=== PATIENT | female | born 1950 | race Caucasian/White ===

== ENCOUNTER 2022-05-22 11:15 | Outpatient (RCR) | payer MEDICARE, SELFPAY | END 2022-09-24 23:59 | disposition home or self-care (01) | PROVIDERS: Visit Provider Physician Assistant Medical | DX: H81.12 Benign paroxysmal vertigo, left ear (principal); Z51.89 Encounter for other specified aftercare | CPT/HCPCS: 95992; 97535 ==

== ENCOUNTER 2023-07-11 19:42 | Outpatient (CLI) | payer MEDICARE, SELFPAY ==
--- OUTSIDE RECORDS SUMMARY | 2023-07-15 06:46 | XMS_ITS | Clinical Summary ---
Author Name Unknown Organization [facility] Address [place], [place] [address] Care Team Providers Care Corporate Operations Compliance Manager Name Role Phone Kely Cho Primary Care Provider Osman Marie MD Unavailable [phone] Nurses, Advanced Heart Failure Unavailable + Allergies Active Allergy Reactions Criticality Noted Date Comments Dexmedetomidine Arrhythmia 04/14/2021 Complete heart block Medications Medication Sig Dispensed Refills Start Date End Date Status dapagliflozin propanediol (Farxiga) 10 mg tabletIndications:A cute systolic heart failure (HC) Take 1 Tablet (10 mg) by mouth once daily. Get labs drawn in 2 weeks after starting Farxiga. 30 Tablet 11 3 Active carvediloL (COREG) 12.5 mg tabletIndications:P VC's (premature ventricular contractions),Nonis chemic cardiomyopathy (HC) Take 1 Tablet (12.5 mg) by mouth two times daily. 180 Tablet 3 3 Active sacubitril-valsarta n (ENTRESTO 24 MG-26 MG TABLET) 24-26 mg tabletIndications:A cute systolic heart failure (HC) Take 1 Tablet by mouth two times daily. 60 Tablet 11 3 Active Eliquis 5 mg tabletIndications:P ulmonary embolism, unspecified chronicity, unspecified pulmonary embolism type, unspecified whether acute cor pulmonale present (HC) TAKE 1 TABLET(5 MG) BY MOUTH TWICE DAILY 60 Tablet 6 4 Active spironolactone (ALDACTONE) 25 mg tabletIndications:A cute systolic heart failure (HC) TAKE 1/2 TABLET(12.5 MG) BY MOUTH EVERY MORNING 45 Tablet 4 Active rosuvastatin (CRESTOR) 20 mg tabletIndications:A cute systolic heart failure (HC) Take 1 Tablet (20 mg) by mouth at bedtime. 30 Tablet 4 Active amiodarone (CORDARONE) 200 mg tabletIndications:V entricular tachycardia (HC) Take 2 Tablets (400 mg) by mouth two times daily for 14 days, THEN decrease to 2 Tablets (400 mg) once daily. 90 Tablet 4 Active furosemide (LASIX) 40 mg tabletIndications:A cute systolic heart failure (HC) Take 0.5 Tablets (20 mg) by mouth once daily if needed (weight gain - 3 lbs in a day or 5 lbs in a week). 30 Tablet 2 2 07/12/19 24 Discontinued(*Pa tient states no longer taking) rosuvastatin (CRESTOR) 20 mg tabletIndications:A cute systolic heart failure (HC) TAKE 1 TABLET(20 MG) BY MOUTH AT BEDTIME 90 Tablet 4 07/04/19 24 Discontinued amoxicillin-clavula elaine 875-125 mg tablet (AUGMENTIN) Take 1 Tablet by mouth two times daily with meals. 4 07/14/19 24 Discontinued(*IP Discontinued) Active Problems Problem Noted Date Diagnosed Date Dilated cardiomyopathy 07/12/2023 Ventricular tachycardia 07/12/2023 History of pulmonary embolus (PE) 04/24/2021 Overview: [...] was given a second shock. Brought to [facility], then airlifted to [facility]. Angiogram showed mild coronary artery disease. Was put on cooling protocol. Echocardiogram showed heart failure and non ischemic cardiomyopathy. ICD placed 04/22/21. Acute systolic heart failure LBBB (left bundle branch block) Ventricular tachycardia PVC (premature ventricular contraction) Encounters Date Type Department Care Team Description 2023 Travel 07/12/2023 9:58 AM CDT - 2023 5:28 PM CDT Hospital Encounter [facility] [address] [place] [address] [facility], [facility] Hospitalists Of Dora Carter MD Ventricular tachycardia (HC) (Primary Dx) Discharge Disposition: Home Self Care 07/12/2023 Travel 07/11/2023 Orders Only [facility] [address] [place] [address] Tavo Mendoza MD <No scans attached> 07/11/2023 Telephone [facility] [address] [place] [address] Tavo Mendoza MD 07/04/2023 Refill [facility] [address] [place] [address] Kely Cho PA Refill Request (Rosuvastatin) 07/03/2023 Refill [facility] [address] [place] [address] Kely Cho PA Refill Request (Rosuvastatin) 05/27/2023 Refill [facility] [address] [place] [address] Kely Cho PA Refill Request (Spironolactone) 04/30/2023 Telephone Pending Sale To [facility] [address] [facility] [address] [place] [phone] Osman Marie MD Cardiology Appointment from Last 3 Months Immunizations Name Administration Dates Next Due COVID-19 vaccine (Simple AdmitBio NTBetterLesson 30mcg/0.3mL) CORINNE CALDERÓN 07/12/2020,06/21/2020 Influenza, High-dose Quadriv alent Inactivated 01/19/2022,01/07/2021,01/25/2020 [...] of Communication with Friends and Fami ly 0 07/12/2023 Financial Resource Strain Answer Date R ecorded Difficulty of Paying Living Expenses 3 07/12/2023 Difficulty of Paying Living Expenses Not on file 07/12/2023 Food Insecurity Answer Date Recorded Worried About Running Out of Food in the Last Ye ar 1 07/12/2023 Transportation Needs Answer Date Record ed Lack of Transportation (Medical) 1 07/12/2023 Housing Stability Answer Date Recorded Unable to Pay for Housing in the Last Year 1 07/12/2023 Sex and Gender Information Value Date Recorded Sex Assigned at Not on file Gender Identity Not on file Sexual Orientation Not on file Obstetrics History Last Filed Vital Signs Vital Sign Reading Time Taken Comments Blood Pressure 102/70 2023 4:11 PM CDT Pulse 84 2023 4:11 PM CDT Temperature 36.8 ??C (98.2 ??F) 2023 12:40 PM C DT Respiratory Rate 18 2023 4:11 PM CDT Oxygen Saturation 93% 2023 4:11 PM CDT Inhaled Oxygen Concentration - - Weight 93 kg (205 lb) 07/12/2023 10:10 AM CDT Height 172.7 cm (5' 8) 07/12/2023 10:10 AM CDT Body Mass Index 31.17 07/12/2023 10:10 AM CDT Plan of Treatment Upcoming Encounters Date Type Department Care Team (Late st Contact Info) Description 07/19/2023 1:00 PM CDT Office Visit [facility] [address] [place] [address] Magdalena Lima MD [address] [place] [address] 08/19/2023 9:30 AM CDT Orders Only [facility] [address] [place] [address] Lab, [place] 08/23/2023 11:10 AM CDT Office Visit [facility] [address] [place] [address] Kely Cho PA [address] [place] [address] 08/25/[address] [facility] [phone] 08/26/2023 10:00 AM CDT Office Visit [facility] [address] [place] [address] Osman Marie MD [address] [place] [address] 10/19/2023 10:30 AM CDT Cardiac Device Check [facility] [address] [place] [phone] Health Maintenance Due Date Last Done Comments [...] Procedure Name Priority Date/Time Associated Diagnosis Comments SCAN-CARDIAC STRIP 2023 4: 40 PM CDT MR CARDIAC WWO Routine 2023 12:31 PM CDT SCAN-CARDIAC STRIP 2023 7: 30 AM CDT MAGNESIUM Early AM 2023 6:10 AM CDT POTASSIUM Early AM 2023 6:10 AM CDT SCAN-CARDIAC STRIP 2023 2: 35 AM CDT SCAN-CARDIAC STRIP 07/13/2023 11 :32 AM CDT ECHO TTE LIMITED W CONTRAST W COLOR W DOPPLER Routine 07/13/2023 9:44 AM CDT SCAN CORRESP-EKG RESULTS 07/13/2023 9:00 AM CDT SCAN-CARDIAC STRIP 07/12/2023 8: 03 PM CDT SCAN-CARDIAC STRIP 07/12/2023 3: 52 PM CDT SCAN-CARDIAC STRIP 07/12/2023 12 :02 PM CDT XR CHEST 1 VIEW PORTABLE Routine 07/12/2023 11:31 AM CDT HEPATIC FUNCTION PANEL Today 07/12/2023 11:22 AM CDT TSH Today 07/12/2023 11:22 AM CDT MAGNESIUM Today 07/12/2023 11:22 AM CDT CBC W PLT NO DIFF Today 07/12/2023 11: 22 AM CDT BASIC METABOLIC PANEL Timed 07/12/2023 11:22 AM CDT XR MAMMO JERE BILAT SCREEN Routine 02/23/2022 4:31 PM PROPOSAL REVIEW ANALYST Visit for screening mammogram XR DXA BONE DENSITY 2 SITES AXIAL Routine 02/23/2022 3:41 PM PROPOSAL REVIEW ANALYST Menopause ANTI HCV Routine 02/03/2022 11:20 AM PROPOSAL REVIEW ANALYST Need for hepatitis C screening test LIPID PANEL Routine 08/15/2021 7:44 AM CDT Acute systolic heart failure (HC) from Last 3 Months or Most Recently Relevant to Health Maintenance Results * SCAN-CARDIAC STRIP (2023 4:40 PM CDT) Scanner OTHER * MR CARDIAC WWO (2023 12:31 PM CDT) Anatomical Region Laterality Modality HEART, THORAX Magnetic Resonan ce 2023 11:1 6 AM CDT Narrative 2023 1:07 PM CDT ?[facility] ? CMR Report ??MRN: ?[id number] ?Name: ? ANNE VILLARREAL ?: ?Scan Date: ?Accession Number: ?[id number] ?Status: ?Final ? Electronically signed by Perez Anguiano 13:07:48 VITALS ===== HEIGHT: 68 in ?(173 cm) WEIGHT: 205 lbs ?(93 kgs) BSA: 2.07 m^2 FINAL IMPRESSION ===== 1. On late gadolinium enhancement imaging, there is non-ischemic epicardial and subendocardial fibrosis involving the basal RVOT/anteroseptum and basal inferoseptum that correspond to the locations described in the procedural note from the 11/18/21 ablation sites (RVOT and LV septum). The myocardial fibrosis is less conspicuous compared to prior CMR scan from 03/03/2022. No cardiac thrombus. Parametric mapping was nondiagnostic due to off resonance artifacts related to her device. LV scar size is 4 % of LV mass. 2. Quantitative LVEF 57 %. LV systolic function is normal. LV cavity size is normal. LV wall thickness is normal. The left ventricular appears mildly hypertrabeculated. 3. Quantitative RVEF 59 %. RV systolic function is normal. RV cavity size is normal. 4. No significant valvular disease. ?? 5. No pericardial or pleural effusions. SUMMARY ===== LEFT VENTRICLE: Quantitative LVEF 57 % (previously 31% on 03/03/2022). LV systolic function is normal. LV cavity size is normal. LV wall thickness is normal. The left ventricular appears mildly hypertrabeculated. VIABILITY: On late gadolinium enhancement imaging, there is non-ischemic epicardial and subendocardial fibrosis involving the basal RVOT/anteroseptum and basal inferoseptum that correspond to the locations described in the procedural note from the 11/18/21 ablation sites (RVOT and LV septum). The myocardial fibrosis is less conspicuous compared to prior CMR scan from 03/03/2022. No cardiac thrombus. Parametric mapping was nondiagnostic due to off resonance artifacts related to her device. LV scar size is 4 % of LV mass. RIGHT VENTRICLE: Quantitative RVEF 59 % (previously 46% on 03/03/2022). RV systolic function is normal. RV cavity size is normal. PERICARDIUM: There is no pericardial effusion. PLEURAL EFFUSION: There is no pleural effusion. AORTIC VALVE: Aortic valve is trileaflet. There is no aortic stenosis. There is no aortic regurgitation. MITRAL VALVE: Mitral valve leaflets are normal. There is no mitral regurgitation. TRICUSPID VALVE: The tricuspid valve was obscured by artifact related to device leads PULMONIC VALVE: Pulmonic valve leaflets are normal. There is no pulmonic stenosis. There is no pulmonic regurgitation. AORTIC ROOT: The aortic root is normal. OTHER FINDINGS: Left sided ICD/MANAGER CUSTOMER SERVICE system in place with usual off resonance artifacts. CORE EXAM ===== MEASUREMENTS ----- --- ?VOLUMETRIC ANALYSIS ? . . ? LV ?? Reference RV ?? Reference +------+ +------+ +------+ + EDV ?? ml ?124 ??(77-158) ??115 ??(22-153) ? ml/m^2 ? 60 ??(50-84) ? 56 ??(45-82) ?? ESV ?? ml ? 53 ??(18-55) ? 47 ??(6-58) ? ml/m^2 ? 26 ??(12-30) ? 23 ??(6-32) ?? CO ?? L/min ? 4.83 ? 4.62 ? L/min/m^2 2.34 ? 2.24 ? MASS g ?119 ??(60-510) ? g/m^2 ? 58 ??(94-78) ? SV ?? ml ? 71 ??(54-109) ?? 68 ??(53-105) ? ml/m^2 ? 34 ??(34-59) ? 33 ??(33-57) ?? EF ?? % ? 57 ??(60-78) ? 59 ??(59-83) ?? '------+ +------+ +------+ ' ?CARDIAC OUTPUT HR: ??68 BPM 17 SEGMENT ----- --- . ----- ------. Segments ? Wall Motion ?? Hyperenhancement Stress Perfusion Interpretation + + + + +----- ----- ------+ Base Anterior ? Normal/Hyper None ? Base Anteroseptal ?? Normal/Hyper 26-50% ? Non-CAD Scar ?? Base Inferoseptal ?? Normal/Hyper 26-50% ? Non-CAD Scar ?? Base Inferior ? Normal/Hyper None ? Base Inferolateral Normal/Hyper None ? Base Anterolateral Normal/Hyper None ? Mid Anterior ? Normal/Hyper None ? Mid Anteroseptal ?? Normal/Hyper None ? Mid Inferoseptal ?? Normal/Hyper None ? Mid Inferior ? Normal/Hyper None ? Mid Inferolateral ?? Normal/Hyper None ? Mid Anterolateral ?? Normal/Hyper None ? Apical Anterior ? Normal/Hyper None ? Apical Septal ? Normal/Hyper None ? Apical Inferior ? Normal/Hyper None ? Apical Lateral ? Normal/Hyper None ? Milton ? Normal/Hyper None ? + + + + +----- ----- ------+ RV Segments ? Wall Motion ?? Hyperenhancement ? Interpretation + + + + +----- ----- ------+ RV Basal Anterior ? RV Basal Inferior ? RV Mid ? RV Apical ? ' + + + +----- ----- ------' ?FINDINGS ?LV SCAR SIZE (17 SEGMENT): ??4 % SCAN INFO ===== GENERAL ----- --- ?SCANNER ?COMPUTER DESIGNER: ??SIEMENS ?MODEL: ??Aera ?CONTRAST AGENT ?TYPE: ??Gadavist ?GD CONCENTRATION: ??1.0 M ?SETUP ?REFERRING PHYSICIAN: ??ER OTHER ?ATTENDING PHYSICIAN: ??DORA CARTER BILLING ===== Patient Account ?[id number] Report generated by [employer], a product of [employer] Procedure Note Perez Anguiano MD - 2023 [facility] CMR Report Name: YASMINE VILLARREALShy Bruno : Scan Date: Accession Number: [id number] Status: Final Electronically signed by Perez Anguiano 13:07:48 VITALS ===== HEIGHT: 68 in (173 cm) WEIGHT: 205 lbs (93 kgs) BSA: 2.07 m^2 FINAL IMPRESSION ===== 1. On late gadolinium enhancement imaging, there is non-ischemicepicardial and subendocardial fibrosis involving the basal RVOT/anteroseptum and basal inferoseptum thatcorrespond to the locations described in the procedural note from the 11/18/21 ablation sites (RVOT and LV septum).The myocardial fibrosis is less conspicuous compared to prior CMR scan from 03/03/2022. No cardiacthrombus. Parametric mapping was nondiagnostic due to off resonance artifacts related to her device. LVscar size is 4 % of LV mass. 2. Quantitative LVEF 57 %. LV systolic function is normal. LV cavity sizeis normal. LV wall thickness is normal. The left ventricular appears mildly hypertrabeculated. 3. Quantitative RVEF 59 %. RV systolic function is normal. RV cavity sizeis normal. 4. No significant valvular disease. 5. No pericardial or pleural effusions. SUMMARY ===== LEFT VENTRICLE: Quantitative LVEF 57 % (previously 31% on 03/03/2022). LVsystolic function is normal. LV cavity size is normal. LV wall thickness is normal. The left ventricular appears mildlyhypertrabeculated. VIABILITY: On late gadolinium enhancement imaging, there is non- ischemicepicardial and subendocardial fibrosis involving the basal RVOT/anteroseptum and basal inferoseptum thatcorrespond to the locations described in the procedural note from the 11/18/21 ablation sites (RVOT and LV septum).The myocardial fibrosis is less conspicuous compared to prior CMR scan from 03/03/2022. No cardiacthrombus. Parametric mapping was nondiagnostic due to off resonance artifacts related to her device. LVscar size is 4 % of LV mass. RIGHT VENTRICLE: Quantitative RVEF 59 % (previously 46% on 03/03/2022). RVsystolic function is normal. RV cavity size is normal. PERICARDIUM: There is no pericardial effusion. PLEURAL EFFUSION: There is no pleural effusion. AORTIC VALVE: Aortic valve is trileaflet. There is no aortic stenosis.There is no aortic regurgitation. MITRAL VALVE: Mitral valve leaflets are normal. There is no mitralregurgitation. TRICUSPID VALVE: The tricuspid valve was obscured by artifact related todevice leads PULMONIC VALVE: Pulmonic valve leaflets are normal. There is no pulmonicstenosis. There is no pulmonic regurgitation. AORTIC ROOT: The aortic root is normal. OTHER FINDINGS: Left sided ICD/MANAGER CUSTOMER SERVICE system in place with usual offresonance artifacts. CORE EXAM ===== MEASUREMENTS ----- --- VOLUMETRIC ANALYSIS . . LV Reference RV Reference +------+ +------+ +------+ + EDV ml 124 (77-158) 115 (69-153) ml/m^2 60 (50-84) 56 (45-82) ESV ml 53 (18-55) 47 (6-58) ml/m^2 26 (12-30) 23 (6-32) CO L/min 4.83 4.62 L/min/m^2 2.34 2.24 MASS g 119 (74-146) g/m^2 58 (49-78) SV ml 71 (54-109) 68 (53-105) ml/m^2 34 (34-59) 33 (33-57) EF % 57 (60-78) 59 (59-83) '------+ +------+ +------+ ' CARDIAC OUTPUT HR: 68 BPM 17 SEGMENT ----- --- . ----- ------. Segments Wall Motion Hyperenhancement Stress Perfusion Interpretation + + + + +----- ----- ------+ Base Anterior Normal/Hyper None Base Anteroseptal Normal/Hyper 26-50% Non-CAD Scar Base Inferoseptal Normal/Hyper 26-50% Non-CAD Scar Base Inferior Normal/Hyper None Base Inferolateral Normal/Hyper None Base Anterolateral Normal/Hyper None Mid Anterior Normal/Hyper None Mid Anteroseptal Normal/Hyper None Mid Inferoseptal Normal/Hyper None Mid Inferior Normal/Hyper None Mid Inferolateral Normal/Hyper None Mid Anterolateral Normal/Hyper None Apical Anterior Normal/Hyper None Apical Septal Normal/Hyper None Apical Inferior Normal/Hyper None Apical Lateral Normal/Hyper None Milton Normal/Hyper None + + + + +----- ----- ------+ RV Segments Wall Motion Hyperenhancement Interpretation + + + + +----- ----- ------+ RV Basal Anterior RV Basal Inferior RV Mid RV Apical ' + + + +----- ----- ------' FINDINGS LV SCAR SIZE (17 SEGMENT): 4 % SCAN INFO ===== GENERAL ----- --- SCANNER COMPUTER DESIGNER: SIEMENS MODEL: Aera CONTRAST AGENT TYPE: Gadavist GD CONCENTRATION: 1.0 M SETUP REFERRING PHYSICIAN: ERNÉ ROSA ATTENDING PHYSICIAN: DORA TORRES ===== Patient Account [id number] Report generated by [employer], a product of [employer] Saroj Rossi PA MR * SCAN-CARDIAC STRIP (2023 7:30 AM CDT) Scanner OTHER * POTASSIUM (2023 6:10 AM CDT) POTASSIUM 4.0 3.5 - 5.1 mmol/L 2023 7:30 AM CDT [facility] Blood BLOOD SPECIMEN / Unknown Butterfly / Unknown 2023 6:10 AM CDT 2023 6:46 AM CDT Dora Carter MD CHEMISTRY Performing Organization Address [facility] Co de Phone Number [facility] [address] [place] [address], * MAGNESIUM (2023 6:10 AM CDT) Only the most recent of2 resultswithin the time period is included. MAGNESIUM 2.1 1.6 - 2.4 mg/dL 2023 7:30 AM CDT [facility] Blood BLOOD SPECIMEN / Unknown Butterfly / Unknown 2023 6:10 AM CDT 2023 6:46 AM CDT Dora Carter MD CHEMISTRY Performing Organization Address [facility] Co de Phone Number [facility] [address] [place] [address], * SCAN-CARDIAC STRIP (2023 2:35 AM CDT) Scanner OTHER * SCAN-CARDIAC STRIP (07/13/2023 11:32 AM CDT) Scanner OTHER * ECHO TTE LIMITED W CONTRAST W COLOR W DOPPLER (07/13/2023 9:44 AM CDT) AORTIC VALVE MEAN PG 4 mmHg EJECTION FRACTION 54 % PEAK TR VELOCITY 2.1 m/s LVEDD 3.7 cm EJECTION FRACTION 55 - 60% Anatomical Region Laterality Modality Ultrasound 07/13/2023 8:03 AM CDT Narrative 07/13/2023 10:08 AM CDT ECHOCARDIOGRAM ANNE VILLARREAL ?Accession#: ?? [id number] : ?1950 72 years Study Date: ?? 07/13/2023 8:03:19 AM Gender: F ? BP: ? 114/64 mmHg Height: 173.00 cm ? BSA: ?2.07 m? ? ? Weight: 93.00 kg ?Tech: ? HR-TRVL ?Referring MD: SAROJ ROSSI Site: ? [facility] Reading Location: [facility] Patient Location: Inpatient. Procedure: Limited Echo w/ Contrast, Color Doppler and Limited Spectral Doppler. Indication for study: Tachycardia Cardiac Rhythm: Regular.Study quality: Technically limited. Final Impressions: Limited Echocardiogram performed 1. Technically limited exam 2. LVEF estimate 55-60%. Normal LV size and wall thickness. 3. No LV thrombus [contrast study]. 4. Normal RV size and global systolic function. Device lead in the right heart. 5. No significant valvular abnormalities. Trivial AI. 6. Normal PASP and RAP estimates. 7. Mildly dilated ascending aorta [3.8 cm]. Chamber Sizes and Function Left atrial size is normal. Right ventricular cavity size is normal, global systolic RV function is normal. Pacing wire/catheter visualized in the right ventricle. The right atrium is normal. The pulmonary artery is of normal size and origin. The sinus of Valsalva is dilated. The ascending aorta is dilated. Valves, RV Pressures and Diastolic Function The aortic valve is normal in structure, no stenosis and trivial regurgitation. The mitral valve is normal in structure, no mitral regurgitation. The tricuspid valve is normal in structure. Tricuspid regurgitation is not evident. The tricuspid regurgitant velocity is 2.1 m/s, the estimated right ventricular systolic pressure is 17 mmHg plus right atrial pressure. The pulmonic valve is normal. No pulmonic regurgitation is present on color flow. Masses, Effusion, Shunts There is no pericardial effusion. The inferior vena cava is normal sized, respiratory size variation greater than 50%. MEASUREMENTS AND CALCULATIONS 2-D Measurements and LV Function: LVID (d) 3.7 cm LV FS% (2D) ?? 27 % LVID (s) 2.7 cm LVOT diameter 2.2 cm IVS (d) ??0.9 cm HR ?70 bpm LVPW (d) 0.9 cm Ao Sinus 3.8 cm Asc Ao ?? 3.8 cm LA ? 3.3 cm Diastology: Mitral E Peak 0.45 m/s A Peak 0.70 m/s E/A ?0.6 DT ? 236 msec Aortic Valve: Vmax ? 1.3 m/s ??BRENT (V) ?? 2.73 cm? ? ? VTI ?0.27 m ?? BRENT (I) ?? 2.81 cm? ? ? LVOT V max 1.0 m/s ??Max PG ?7 mmHg LVOT VTI ?? 0.20 m ?? Mean PG ?? 4 mmHg SV ? 75 ml ?Dim Index 0.74 SV index ?? 36 ml/m? ? ? CO ?5.2 l/min ?CI ?2.5 l/min/m? ? ? Mitral Valve: MVA ?3.2 cm? ? ? MV P 1/2 68 msec Tricuspid Valve and estimated PA pressures: TR Vmax 2.1 m/s TAPSE 2.9 cm TR maxG 17 mmHg Pulmonic Valve: PV Vmax 1.0 m/s Contrast documentation: 2 ml diluted Definity, lot #[id number], [facility]# [id number] was administered peripherally to enhance visualization of all left ventricular segments. . This study was interpreted by an [facility] accredited facility. ??Final ?? Procedure Note Lucas Coburn MD - 07/13/2023 ECHOCARDIOGRAM ANNE VILLARREAL : 1950 72 years Study Date: 07/13/2023 8:03:19 AM Gender: F BP: 114/64 mmHg Height: 173.00 cm BSA: 2.07 m? ? ? Weight: 93.00 kg Tech: HR-TRVL Referring MD: SAROJ ROSSI Site: [facility] Reading Location: [facility] Patient Location: Inpatient. Procedure: Limited Echo w/ Contrast, Color Doppler and Limited SpectralDoppler. Indication for study: Tachycardia Cardiac Rhythm: Regular.Study quality: Technically limited. Final Impressions: Limited Echocardiogram performed 1. Technically limited exam 2. LVEF estimate 55-60%. Normal LV size and wall thickness. 3. No LV thrombus [contrast study]. 4. Normal RV size and global systolic function. Device lead in the rightheart. 5. No significant valvular abnormalities. Trivial AI. 6. Normal PASP and RAP estimates. 7. Mildly dilated ascending aorta [3.8 cm]. Chamber Sizes and Function Left atrial size is normal. Right ventricular cavity size is normal,global systolic RV function is normal. Pacing wire/catheter visualized inthe right ventricle. The right atrium is normal. The pulmonary artery isof normal size and origin. The sinus of Valsalva is dilated. The ascendingaorta is dilated. Valves, RV Pressures and Diastolic Function The aortic valve is normal in structure, no stenosis and trivialregurgitation. The mitral valve is normal in structure, no mitralregurgitation. The tricuspid valve is normal in structure. Tricuspidregurgitation is not evident. The tricuspid regurgitant velocity is 2.1m/s, the estimated right ventricular systolic pressure is 17 mmHg plusright atrial pressure. The pulmonic valve is normal. No pulmonicregurgitation is present on color flow. Masses, Effusion, Shunts There is no pericardial effusion. The inferior vena cava is normal sized,respiratory size variation greater than 50%. MEASUREMENTS AND CALCULATIONS 2-D Measurements and LV Function: LVID (d) 3.7 cm LV FS% (2D) 27 % LVID (s) 2.7 cm LVOT diameter 2.2 cm IVS (d) 0.9 cm HR 70 bpm LVPW (d) 0.9 cm Ao Sinus 3.8 cm Asc Ao 3.8 cm LA 3.3 cm Diastology: Mitral E Peak 0.45 m/s A Peak 0.70 m/s E/A 0.6 DT 236 msec Aortic Valve: Vmax 1.3 m/s BRENT (V) 2.73 cm? ? ? VTI 0.27 m BRENT (I) 2.81 cm? ? ? LVOT V max 1.0 m/s Max PG 7 mmHg LVOT VTI 0.20 m Mean PG 4 mmHg SV 75 ml Dim Index 0.74 SV index 36 ml/m? ? ? CO 5.2 l/min CI 2.5 l/min/m? ? ? Mitral Valve: MVA 3.2 cm? ? ? MV P 1/2 68 msec Tricuspid Valve and estimated PA pressures: TR Vmax 2.1 m/s TAPSE 2.9 cm TR maxG 17 mmHg Pulmonic Valve: PV Vmax 1.0 m/s Contrast documentation: 2 ml diluted Definity, lot #[id number], [facility]#[id number] was administered peripherally to enhance visualization of allleft ventricular segments. . This study was interpreted by an [facility] accredited facility. Final Saroj CASTAÑEDA ECHO ORD * SCAN CORRESP-EKG RESULTS (07/13/2023 9:00 AM CDT) Narrative 07/13/2023 9:00 AM CDT Ordered by an unspecified provider. Other Clinical Staff OTHER * SCAN-CARDIAC STRIP (07/12/2023 8:03 PM CDT) Scanner OTHER * SCAN-CARDIAC STRIP (07/12/2023 3:52 PM CDT) Scanner OTHER * SCAN-CARDIAC STRIP (07/12/2023 12:02 PM CDT) Scanner OTHER * XR CHEST 1 VIEW PORTABLE (07/12/2023 11:31 AM CDT) Anatomical Region Laterality Modality HEART, THORAX, CHEST Digital Rad iography Impressions 07/12/2023 6:45 PM CDT Cardiovascular structures: [Heart size and pulmonary vascularity stable allowing for portable technique.] ??ICD and pacemaker leads are in stable position of the left side generator. Lungs and pleura: [No new focal pulmonary opacities or pneumothorax.] No significant change. Narrative 07/12/2023 6:45 PM CDT INDICATION Heart failure TECHNIQUE Portable single view chest COMPARISON April 23, 2021 Dora Carter MD GENERAL IMAGING * TSH TODAY (07/12/2023 11:22 AM CDT) TSH 1.07 0.27 - 4.20 uIU/mL 07/12/2023 12:33 PM CDT [facility] Blood BLOOD SPECIMEN / Unknown Venipuncture / Unknown 07/12/2023 11:22 AM CDT 07/12/2023 11:45 AM CDT Narrative [facility] - 07/12/2023 12:33 PM CDT In Adults, TSH values between 5.00 and 10.00 uIU/ml do not necessarily indicate the presence of Hypothyroidism. Correlation with clinical findings such as presence of goiter and/or Thyroperoxidase (TPO) Antibody may be helpful. For more information please refer to CLIFF 2004; 291: 228-238. Dora Carter MD CHEMISTRY [facility] [address] [place] [address], [place] * CBC no diff TODAY (07/12/2023 11:22 AM CDT) WHITE BLOOD COUNT 5.5 4.5 - 11.0 thou/cu mm 07/12/2023 12:06 PM CDT [facility] RED BLOOD COUNT 4.67 4.00 - 5.20 mil/cu mm 07/12/2023 12:06 PM CDT [facility] HEMOGLOBIN 15.1 12.0 - 16.0 g/dL 07/12/2023 12:06 PM CDT [facility] HEMATOCRIT 44.9 33.0 - 51.0 % 07/12/2023 12:06 PM CDT [facility] MCV 96 80 - 100 fL 07/12/2023 12:06 PM CDT [facility] MCH 32.3 26.0 - 34.0 pg 07/12/2023 12:06 PM CDT [facility] MCHC 33.6 32.0 - 36.0 g/dL 07/12/2023 12:06 PM CDT [facility] RDW 12.9 11.5 - 15.5 % 07/12/2023 12:06 PM CDT [facility] PLATELET COUNT 179 140 - 440 thou/cu mm 07/12/2023 12:06 PM CDT [facility] MPV 10.7 6.5 - 11.0 fL 07/12/2023 12:06 PM CDT [facility] NRBC 0.0 % 07/12/2023 12:06 PM CDT [facility] ABS NRBC 0.0 thou /cu mm 07/12/2023 12:06 PM CDT [facility] Blood BLOOD SPECIMEN / Unknown Venipuncture / Unknown 07/12/2023 11:22 AM CDT 07/12/2023 11:45 AM CDT Dora Carter MD HEMATOLOGY [facility] [address] [address], * (ABNORMAL) Hepatic function panel TODAY (07/12/2023 11:22 AM CDT) ALBUMIN 4.3 4.0 - 4.9 g/dL 07/12/2023 12:33 PM CDT [facility] PROTEIN,TOTAL 6.9 6.0 - 8.0 g/dL 07/12/2023 12:33 PM CDT [facility] BILIRUBIN,TOTAL 0.4 0.0 - 1.2 mg/dL 07/12/2023 12:33 PM CDT [facility] BILIRUBIN,DIRECT <0.2 0.0 - 0.3 mg/dL 07/12/2023 12:33 PM CDT [facility] BILIRUBIN,INDIRE CT 07/12/2023 12:33 PM CDT [facility] Comment:Unable to calculate, Direct Bili <0.2 ALK PHOSPHATASE 64 35 - 104 IU/L 07/12/2023 12:33 PM CDT [facility] ALT (SGPT) 21 10 - 35 IU/L 07/12/2023 12:33 PM CDT [facility] AST (SGOT) 41(H) 10 - 35 IU/L 07/12/2023 12:33 PM CDT [facility] Blood BLOOD SPECIMEN / Unknown Venipuncture / Unknown 07/12/2023 11:22 AM CDT 07/12/2023 11:45 AM CDT Dora Carter MD CHEMISTRY [facility] [address] [address], * (ABNORMAL) Basic metabolic panel TODAY (07/12/2023 11:22 AM CDT) SODIUM 142 136 - 145 mmol/L 07/12/2023 12:33 PM CDT [facility] POTASSIUM 4.0 3.5 - 5.1 mmol/L 07/12/2023 12:33 PM CDT [facility] CHLORIDE 107 98 - 107 mmol/L 07/12/2023 12:33 PM T [facility] CO2,TOTAL 23 22 - 29 mmol/L 07/12/2023 12:33 PM T [facility] ANION GAP 12 5 - 18 07/12/2023 12:33 PM T [facility] GLUCOSE 111(H) 70 - 99 mg/dL 07/12/2023 12:33 PM T [facility] CALCIUM 9.3 8.8 - 10.2 mg/dL 07/12/2023 12:33 PM T [facility] BUN 9 8 - 23 mg/dL 07/12/2023 12:33 PM T [facility] CREATININE 0.81 0.50 - 0.90 mg/dL 07/12/2023 12:33 PM T [facility] BUN/CREAT RATIO 11 10 - 20 12:33 PM T [facility] eGFR 78(L) >90 mL/min/1.7 3m2 07/12/2023 12:33 PM T [facility] Comment:As of 2021, eG FR is calculated by the CKD-EPI creatinine equation without race adjustment. ??eGFR can be influenced by muscle mass, exercise, and diet. ??The reported eGFR is an estimation only and is only applicable if the renal function is stable. Blood BLOOD SPECIMEN / Unknown Venipuncture / Unknown 07/12/2023 11:22 AM CDT 07/12/2023 11:45 AM CDT Dora Carter MD [facility] [address] [place] [address], [place] * XR MAMMO JERE BILAT SCREEN (02/23/2022 4:31 PM PROPOSAL REVIEW ANALYST) Anatomical Region Laterality Modality BREASTS, Breast Left, Breast Right Bilateral Mammography Impressions 02/24/2022 3:24 PM PROPOSAL REVIEW ANALYST ??There is no radiographic evidence for malignancy. ??Recommend annual mammograms. MAMMOGRAM ASSESSMENT: ??ACR 1 Negative PATIENTS: You will also receive a letter with your examination results in an easy to read format. ??If you have questions about your results, please contact your referring provider. Narrative 02/24/2022 3:24 PM PROPOSAL REVIEW ANALYST For Patients: As a result of the Cures Act, medical imaging exams and procedure reports are released immediately into your electronic medical record. You may view this report before your referring provider. If you have questions, please contact your health care provider. XR MAMMO JERE BILAT SCREEN [[id number]] CLINICAL HISTORY: ??This is an asymptomatic 71 y.o. patient. INDICATION FOR EXAM: Mammogram Screening. TECHNIQUE: CC & MLO views were obtained. ??This study was evaluated with the assistance of Computer-Aided Detection. Breast Tomosynthesis was used in interpretation. COMPARISON FILM: Yes [facility] ?? FINDINGS: ??The breasts are heterogeneously dense, which may obscure small masses. There are no dominant masses, suspicious micro calcifications or areas of architectural distortion. Kely CASTAÑEDA MAMMO * XR DXA BONE DENSITY 2 SITES AXIAL [[id number]] (02/23/2022 3:41 PM PROPOSAL REVIEW ANALYST) Anatomical Region Laterality Modality Spine, HIPS, HIPL, HIPR Other Impressions 02/23/2022 4:45 PM PROPOSAL REVIEW ANALYST Normal bone density. RECOMMENDATIONS: The National Osteoporosis [...] recommended in 3-5 years. Kely Cho PA-C [facility] 02/23/2022 Narrative 02/23/2022 4:45 PM PROPOSAL REVIEW ANALYST For Patients: Results are automatically released to your [employer] account once available, in compliance with federal regulations. This means that you may see your results before your provider has had a chance to review them. Please allow 2-3 business days for your provider to comment on the results. XR DXA Bone Mineral Density (BMD) EXAM LOCATION: [facility] [address] [facility] [address] PATIENT NAME: Anne Villarreal DATE OF : [...] two scanners are made by the same sugar reprocess operator head. PROCEDURE: Dual-energy x-ray absorptiometry performed with routine [...] DEXA * ANTI HCV (02/03/2022 11:20 AM PROPOSAL REVIEW ANALYST) Pathologist [facility] [place] HEPATITIS C ANTIBODY Non-React malgorzata Non-React malgorzata 02/05/2022 1:09 PM PROPOSAL REVIEW ANALYST [facility] Comment:Antibodies to HCV no t detected; does not exclude the possibility of exposure to HCV. Blood BLOOD SPECIMEN / Unknown Venipuncture / Unknown 02/03/2022 11:20 AM PROPOSAL REVIEW ANALYST 02/03/2022 11:21 AM PROPOSAL REVIEW ANALYST Kely CASTAÑEDA SEND OUTS [facility] [address] [place] [address], * LIPID PANEL (08/15/2021 7:44 AM CDT) [facility] CHOLESTEROL,TOTAL 123 100 - 199 mg/dL 08/15/2021 3:29 PM CDT [facility] TRIGLYCERIDES 82 <150 mg/dL 08/15/2021 3:29 PM CDT [facility] HDL CHOLESTEROL 43 >40 mg/dL 3:29 PM CDT [facility] NON-HDL CHOLESTEROL 80 <145 mg/dl 08/15/2021 3:29 PM CDT [facility] CHOL/HDL RATIO 2.86 <4.50 08/15/2021 3:29 PM CDT [facility] LDL CHOLESTEROL 64 <=130 mg/dL 08/15/2021 3:29 PM CDT [facility] VLDL CHOLESTEROL 16 <=30 mg/dL 08/15/2021 3:29 PM CDT [facility] PROVIDER ORDERED STATUS RANDOM 08/15/2021 3:29 PM CDT [facility] Blood BLOOD SPECIMEN / Unknown Venipuncture / Unknown 08/15/2021 7:44 AM CDT 08/15/2021 7:44 AM CDT Celia Almanzar MD [facility] [address] [place] [address], from Last 3 Months or Most Recently Relevant to Health Maintenance Advance Directives * Full Code (Latest Code Status on File) Date Activated Date Inactivated Comments 07/12/2023 10:51 AM 2023 7:28 PM Question Answer Comments Code Status Discussion: Reviewed Preferences * Full Code Date Activated Date Inactivated Comments 11/18/2021 3:12 [...] Code Status Discussion: Reviewed Preferences Care Teams Corporate Operations Compliance Manager Relationship Specialty Start Date End Date Kely Cho PA [address] [place] [address] PCP - General Physician Plant Control Operator 04/24/21 Osman Marie MD [address] [place] [address] [phone] Cardiovascular Disease 09/10/21 Nurses, Advanced Heart Failure [address], [place] [phone] Advanced Heart Failure/Transplant Card 09/10/21
== END 2023-07-11 19:43 | disposition home or self-care (01) ==
LOC: AMB 07-15 06:44
PROVIDERS: PCP Physician Assistant Medical; Visit Provider Family Medicine
DX: I49.9 Cardiac arrhythmia, unspecified (principal); T82.190A Other mechanical complication of cardiac electrode, initial encounter; Z95.810 Presence of automatic (implantable) cardiac defibrillator
CPT/HCPCS: A0425; A0427

== ENCOUNTER 2023-07-11 20:28 | Emergency (ER) | payer MEDICARE, SELFPAY ==
[2023-07-11] VITALS (25 sets, daily range): BP systolic 101–120; BP diastolic 68–82; PULSE 88–109; RESP 16; TEMP 36.8; O2SAT 90–96; BMI 31.9
--- NOTE | 2023-07-11 20:45 | ED_ITS ---
HPI - General Adult General Chief complaint: Chest Pain Stated complaint: Chest pain Time Seen by Provider: 07/11/23 20:37 History of Present Illness HPI narrative: Patient here after her defibrillator fired 5+ times at home. The last one was in the ambulance garage in which it was noted she was in vfib and thus has been shocking appropriately. Device Rep at [facility] talked with EMS and would like interogation results faxed to them. Patient had it placed in 2021 and diagnosed with heart failure and having runs of vfib. Recently treated at Urgent Care for a URI (on Augmentin) and mucinex. Device rep number is [phone]. 72-year-old woman presenting to the emergency department via EMS with concern of ventricular fibrillation. Reviewing rhythm strips looks to be more like a ventricular tachycardia. Shortly prior to arrival her defibrillator apparently fired 5 times. Last firing was in the hospital ambulance bay. Underlying history of what sounds to have been a VFib arrest prompting placement of pacer defibrillator. Also apparently had cardiac ablation. Diagnosis of heart failure as well. Maintained on Eliquis. Seen in urgent care earlier today after 5 days of cough and initiated on Augmentin for suspected pneumonia -- over-read of imaging noted to be without suspected infiltrate. Currently arrives without chest pain. Not particularly short of breath. She has not had a fever. I am talking with her though begins to feel a little woozy and I see a run of V tach on the monitor. This happens a couple of times within a minute. Self limited lasting about 6 seconds and looks to be at about 150 beats per minute. Her pacer does not apparently fire. Related Data Home Medications Medication Instructions Recorded Confirmed apixaban 5 mg tablet (Eliquis) 5 mg PO BID 07/11/23 07/11/23 carvedilol 12.5 mg tablet 12.5 mg PO BID 07/11/23 07/11/23 dapagliflozin propanediol 10 mg 10 mg PO DAILY 07/11/23 07/11/23 tablet (Farxiga) rosuvastatin 20 mg tablet 20 mg PO QPM 07/11/23 07/11/23 sacubitril 24 mg-valsartan 26 mg 1 tab PO BID 07/11/23 07/11/23 tablet (Entresto) spironolactone 25 mg tablet 25 mg PO BID 07/11/23 07/11/23 Previous Rx's Medication Instructions Recorded amoxicillin 875 mg-potassium 1 tab PO BID #20 tabs 07/11/23 clavulanate 125 mg tablet Allergies Allergy/AdvReac Type Severity Reaction Status Date / Time dexmedetomidine Allergy Intermediate Verified 07/11/23 10:32 [From Precedex] Review of Systems Status of ROS: Reports: 6 or more systems reviewed and unremarkable except as noted in History and below [facility] Medical History History of cardiac arrest ?Z86.74 - Personal history of sudden cardiac arrest (ICD-10) Surgical History History of radiofrequency ablation (RFA) procedure for cardiac arrhythmia ?Z98.890 - Other specified postprocedural states (ICD-10) Status post cardiac pacemaker procedure ?Z95.0 - Presence of cardiac pacemaker (ICD-10) Social History Non-prescribed substance use: denies use Exam Narrative: Exam Narrative: Pleasant. Easily conversant. Partially edentulous. Cranial nerves 2-12 intact. Breathing easily. Lungs appear to be clear. She does sound congested in the nasopharynx. Skin is warm and dry. She does not have significant peripheral edema maybe some trace dependent edema in the lower legs. Heart is in an elevated rate but regular rhythm on auscultation. Rather distant though. Abdomen is soft. Const: Vital Signs, click to edit/add: Vital Signs - 24 hr 07/11/23 20:35 07/11/23 20:36 07/11/23 20:38 Temperature 98.2 F Pulse Rate 102 H 109 H Pulse Rate [Pulse Oximeter] 107 H Respiratory Rate 16 Blood Pressure 118/82 Blood Pressure [Ri ght Upper Arm] 118/82 Pulse Oximetry 90 90 90 Oxygen Delivery Me thod Room Air 07/11/23 20:45 07/11/23 21:00 07/11/23 21:15 Temperature Pulse Rate 109 H 106 H 106 H Pulse Rate [Pulse Oximeter] Respiratory Rate Blood Pressure Blood Pressure [Ri ght Upper Arm] Pulse Oximetry 92 91 92 Oxygen Delivery Me thod 07/11/23 21:30 07/11/23 21:45 07/11/23 21:56 Temperature Pulse Rate 107 H 98 104 H Pulse Rate [Pulse Oximeter] Respiratory Rate Blood Pressure 120/75 Blood Pressure [Ri ght Upper Arm] Pulse Oximetry 92 94 96 Oxygen Delivery Me thod 07/11/23 21:57 07/11/23 21:59 07/11/23 22:00 Temperature Pulse Rate 102 H 100 100 Pulse Rate [Pulse Oximeter] Respiratory Rate Blood Pressure 116/79 104/75 Blood Pressure [Ri ght Upper Arm] Pulse Oximetry 95 95 95 Oxygen Delivery Me thod 07/11/23 22:01 07/11/23 22:04 07/11/23 22:05 Temperature Pulse Rate 99 98 97 Pulse Rate [Pulse Oximeter] Respiratory Rate Blood Pressure 102/68 Blood Pressure [Ri ght Upper Arm] Pulse Oximetry 95 95 94 Oxygen Delivery Me thod 07/11/23 22:09 07/11/23 22:15 07/11/23 22:25 Temperature Pulse Rate 94 91 Pulse Rate [Pulse Oximeter] Respiratory Rate Blood Pressure 101/68 107/78 Blood Pressure [Ri ght Upper Arm] Pulse Oximetry 95 95 Oxygen Delivery Me thod 07/11/23 22:26 07/11/23 22:30 07/11/23 22:45 Temperature Pulse Rate 88 90 93 Pulse Rate [Pulse Oximeter] Respiratory Rate Blood Pressure Blood Pressure [Ri ght Upper Arm] Pulse Oximetry 95 96 94 Oxygen Delivery Me thod 07/11/23 23:00 07/11/23 23:15 07/11/23 23:30 Temperature Pulse Rate 92 88 93 Pulse Rate [Pulse Oximeter] Respiratory Rate Blood Pressure Blood Pressure [Ri ght Upper Arm] Pulse Oximetry 96 95 95 Oxygen Delivery Me thod 07/11/23 23:46 07/12/23 01:01 07/12/23 02:30 Temperature Pulse Rate 89 95 81 Pulse Rate [Pulse Oximeter] Respiratory Rate 20 20 Blood Pressure 115/81 125/78 Blood Pressure [Ri ght Upper Arm] Pulse Oximetry 95 93 94 Oxygen Delivery Me thod 07/12/23 02:45 07/12/23 02:48 07/12/23 03:00 Temperature Pulse Rate 83 86 Pulse Rate [Pulse Oximeter] Respiratory Rate 20 Blood Pressure 130/81 Blood Pressure [Ri ght Upper Arm] Pulse Oximetry 95 98 94 Oxygen Delivery Me thod 07/12/23 04:11 07/12/23 05:03 07/12/23 06:16 Temperature 98.2 F 98.2 F 98.2 F Pulse Rate Pulse Rate [Pulse Oximeter] 85 75 70 Respiratory Rate 20 20 20 Blood Pressure Blood Pressure [Ri ght Upper Arm] 130/87 124/71 117/67 Pulse Oximetry 98 98 98 Oxygen Delivery Me thod Room Air Room Air Room Air 07/12/23 07:00 Temperature Pulse Rate Pulse Rate [Pulse Oximeter] 89 Respiratory Rate 18 Blood Pressure Blood Pressure [Ri ght Upper Arm] 130/78 Pulse Oximetry 93 Oxygen Delivery Me thod Room Air Documenting provider has reviewed patient's vital signs: yes Course Vital Signs Vital signs: Initial Vital Signs Pulse Rate 102 H 07/11/23 20:35 Blood Pressure 118/82 07/11/23 20:35 Blood Pressure Mean 94 07/11/23 20:35 Pulse Oximetry 90 07/11/23 20:35 Vital Signs Pulse Rate 102 H 07/11/23 20:35 Blood Pressure 118/82 07/11/23 20:35 Pulse Oximetry 90 07/11/23 20:35 Temperature 98.2 F 07/12/23 06:16 Pulse Rate 89 07/12/23 07:00 Respiratory Rate 18 07/12/23 07:00 Blood Pressure 130/78 07/12/23 07:00 Pulse Oximetry 93 07/12/23 07:00 Oxygen Delivery Method Room Air 07/12/23 07:00 Medications Administered Medications: Generic Name Dose Route Start Last Admin Trade Name Freq PRN Reason Stop Dose Admin Amiodarone HCl/Dextrose 360 mg in 200 mls @ 16.5 mls/hr 07/12/23 04:15 07/12/23 03:51 Nexterone 360 Mg/200 Ml Bag IV 16.5 mls/hr .BAG 2 FRANCIS Administration Discontinued Medications Generic Name Dose Route Start Last Admin Trade Name Freq PRN Reason Stop Dose Admin Amiodarone HCl 150 mg 07/11/23 21:03 07/11/23 21:58 Amiodarone 50 Mg/Ml Inj IVP 07/11/23 21:04 150 mg ONCE ONE Administration Sodium Chloride 500 mls @ 500 mls/hr 07/11/23 21:05 07/12/23 01:02 0.9 % Sodium Chloride 500 Ml IV 07/11/23 22:04 Infused .Q1H ONE Infusion Amiodarone HCl/Dextrose 360 mg in 200 mls @ 33 mls/hr 07/11/23 22:30 07/12/23 03:50 Nexterone 360 Mg/200 Ml Bag IV Infused .BAG ONE FRANCIS Infusion Amiodarone HCl/Dextrose 360 mg in 200 mls @ 33 mls/hr 07/11/23 23:15 07/12/23 03:51 Nexterone 360 Mg/200 Ml Bag IV 07/12/23 05:18 Not Given ONCE ONE Medical Decision Making MDM Narrative Medical decision making narrative: Reviewing strips provided by EMS, not clear that these represents VFib . I do see ventricular tachycardia however. IVs initiated and further pacer pads placed. Hopefully not necessary in light of what appears to be a currently functioning implanted defibrillator. Will need to check electrolytes. Light IV hydration. Discussed with cardiology on-call. Reviewed rhythm strips an EKG. Accepted for transport to [facility] with bed availability presumably yet this evening. Will attempt to query device with home transmitter -- ultimately only able to leave messages for staff. Will be initiating amiodarone bolus and then drip per protocol. With treatment as above, frequency of these V-tach episodes had spaced out and now resolved. Anne otherwise feels well. Stable vitals. Mild troponin elevation I think would be expected from a pacer in discharge. Labs are otherwise reassuring. Due to staffing difficulty, bed availability at [facility] now is not guaranteed until morning. Offered transfer to the emergency department. Did discuss with ED staff who is encouraging, due to their volume currently, to continue current therapies here. Anne has been stable. Has had cough and a feeling more throat irritation again. Given honey per request. Has continued without further event. Anticipating transfer after [facility] change of shift and will need to handoff at change of shift here. Medical Records Medical records reviewed: Yes I reviewed the patient's medical records Lab Data Labs: Lab Results 07/11/23 07/11/23 Range/Units 21:03 21:20 WBC 7.34 (4.50-11.00) K/uL RBC 4.79 (4.00-5.20) m/uL Hgb 15.5 (12.0-16.0) gm/dL Hct 45.7 (33.0-51.0) % MCV 95 (80-100) fL MCH 32 (26-34) pg MCHC 34 (32-36) gm/dL RDW Coeff of Kady 12.4 (11.5-15.5) % Plt Count 177 (140-440) K/uL Neut % (Auto) 76.2 H (42.0-72.0) % Lymph % (Auto) 12.9 L (20-44) % [place] % (Auto) 10.4 (0.0-11.0) % Eos % (Auto) 0.0 (0.0-7.0) % Baso % (Auto) 0.4 (0.0-3.0) % Neut # (Auto) 5.60 (1.7-7.0) K/uL Lymph # (Auto) 0.90 (0.90-2.90) K/uL [place] # (Auto) 0.80 (0.00-0.90) K/UL Eos # (Auto) 0.00 (0.00-0.50) K/uL Baso # (Auto) 0.03 (0.00-0.30) K/uL Abs Immat Gran (auto) 0.01 (0.00-0.30) K/uL Imm/Tot Granulo (auto) 0.1 % Sodium 138 (135-149) mmol/L Potassium 3.9 (3.6-5.1) mmol/L Chloride 110 (96-114) mmol/L Carbon Dioxide 21 (20-32) mmol/L Anion Gap 7 (7-15) mEq/L BUN 15 (7-30) mg/dL Creatinine 0.7 (0.5-1.5) mg/dL Estimated Creat Clear 52.81 Estimated GFR 93 ml/min Glucose 182 H (60-115) mg/dL Calcium 8.8 (8.4-10.6) mg/dL Magnesium 2.2 (1.5-2.6) mg/dL Troponin I 0.05 H (0.01-0.04) ng/mL POC Troponin I 0.06 H (0.01-0.04) ng/ml ECG Data Attestation: I personally reviewed and interpreted this ECG as follows: (Paced ventricular rhythm) Discharge Plan Discharge Clinical Impression: Ventricular tachycardia, Defibrillator discharge Patient Disposition: Wendyekaterina Edita Eduardo Condition: Improved Prescriptions: No Action spironolactone 25 mg tablet 25 mg PO BID rosuvastatin 20 mg tablet 20 mg PO QPM Entresto 24-26 mg tablet 1 tab PO BID Eliquis 5 mg tablet 5 mg PO BID dapagliflozin propanediol [Farxiga] 10 mg tablet 10 mg PO DAILY carvedilol 12.5 mg tablet 12.5 mg PO BID amoxicillin-pot clavulanate 875-125 mg tablet 1 tab PO BID Qty: 20 0RF Stand Alone Forms: MyHealth Info Instructions
--- OUTSIDE RECORDS SUMMARY | 2023-07-11 21:27 | XMS_ITS | Clinical Summary ---
Author Name Unknown Organization [employer] [facility] Address [place], [place] [address] Care Team Providers Care Application Support Analyst Name Role Phone Kely Cho Primary Care Provider Osman Marie MD Unavailable [phone] Nurses, Advanced Heart Failure Unavailable + Allergies Active Allergy Reactions Criticality Noted Date Comments Dexmedetomidine Arrhythmia 04/14/2021 Complete heart block Medications Medication Sig Dispensed Refills Start Date End Date Status furosemide (LASIX) 40 mg tabletIndications:A cute systolic heart failure (HC) Take 0.5 Tablets (20 mg) by mouth once daily if needed (weight gain - 3 lbs in a day or 5 lbs in a week). 30 Tablet 2 10/07/2021 Active dapagliflozin propanediol (Farxiga) 10 mg tabletIndications:A cute systolic heart failure (HC) Take 1 Tablet (10 mg) by mouth once daily. Get labs drawn in 2 weeks after starting Farxiga. 30 Tablet 11 10/29/2022 Active carvediloL (COREG) 12.5 mg tabletIndications:P VC's (premature ventricular contractions),Nonis chemic cardiomyopathy (HC) Take 1 Tablet (12.5 mg) by mouth two times daily. 180 Tablet 3 11/06/2022 Active sacubitril-valsarta n (ENTRESTO 24 MG-26 MG TABLET) 24-26 mg tabletIndications:A cute systolic heart failure (HC) Take 1 Tablet by mouth two times daily. 60 Tablet 11 11/11/2022 Active Eliquis 5 mg tabletIndications:P ulmonary embolism, unspecified chronicity, unspecified pulmonary embolism type, unspecified whether acute cor pulmonale present (HC) TAKE 1 TABLET(5 MG) BY MOUTH TWICE DAILY 60 Tablet 6 04/05/2023 Active spironolactone (ALDACTONE) 25 mg tabletIndications:A cute systolic heart failure (HC) TAKE 1/2 TABLET(12.5 MG) BY MOUTH EVERY MORNING 45 Tablet 05/28/2023 Active rosuvastatin (CRESTOR) 20 mg tabletIndications:A cute systolic heart failure (HC) Take 1 Tablet (20 mg) by mouth at bedtime. 30 Tablet 07/04/2023 Active rosuvastatin (CRESTOR) 20 mg tabletIndications:A cute systolic heart failure (HC) TAKE 1 TABLET(20 MG) BY MOUTH AT BEDTIME 90 Tablet 04/04/2023 4 Discontinued Active Problems Problem Noted Date Diagnosed Date History of pulmonary embolus (PE) 04/24/2021 Overview: 04/16/21 Distal main right pulmonary artery extending into the upper and middle lobe branches. Found on cardiac MRI following cardiac arrest. Cardiac arrest 04/09/2021 Overview: Out of hospital cardiac arrest 04/09/21. When EMS arrived, patient was in Vtach. Shocked once, epi given x2, with ROSC. Then had recurrent Vtach and was given a second shock. Brought to [facility], then airlifted to [facility]. Angiogram showed mild coronary artery disease. Was put on cooling protocol. Echocardiogram showed heart failure and non ischemic cardiomyopathy. ICD placed 04/22/21. Acute systolic heart failure LBBB (left bundle branch block) Ventricular tachycardia PVC (premature ventricular contraction) Encounters Date Type Department Care Team Description 07/11/2023 11:59 PM CDT Hospital Encounter [facility] [address] [place] [address] [facility] 07/11/2023 Orders Only [facility] [address] [place] [address] Tavo Mendoza MD <No scans attached> 07/11/2023 Telephone [facility] [address] [place] [address] Tavo Mendoza MD 07/04/2023 Refill [facility] [address] [place] [address] Kely Cho PA Refill Request (Rosuvastatin) 07/03/2023 Refill [facility] [address] [place] [address] Kely Cho PA Refill Request (Rosuvastatin) 05/27/2023 Refill [facility] [address] [place] [address] Kely Cho PA Refill Request (Spironolactone) 04/30/2023 Telephone [facility] [address] [facility] [address] [place] [address] Osman Marie MD Cardiology Appointment from Last 3 Months Immunizations Name Administration Dates Next Due COVID-19 vaccine (b[id number] 30mcg/0.3mL) PF, MDV 07/12/2020,06/21/2020 Influenza, High-dose Quadriv alent Inactivated 01/19/2022,01/07/2021,01/25/2020 Influenza, IIV3 (Age >=3 years) 12/09/2009 Influenza, IIV4 12/03/2015,12/11/2013,12/12/2012 Influenza, IIV4 (=>6mos) MDV 12/19/2014 Influenza, Inactivated IIV3 (Age 65+ Years) Preserv Free 02/08/2019,02/03/2018 Influenza,CCIIV4 PRESERV FREE 01/06/2017 Pneumococcal Conj 20-valent (Prevnar 20) 022 Zoster (Zostavax-ZVL, live) 02/04/2016 Family History Medical History Relation Name Comments Heart attack Father Stroke Maternal Grandmother Arthritis Mother Knee surgeries Cancer-colon Paternal Grandfather Cancer-breast No Family History Cancer-ovarian No Family History Relation Name Status Comments Father MVA Maternal Grandmother Mother Alive Paternal Grandfather Social History Tobacco Use Types Packs/Day Years Used Date Smoking Tobacco: Never Smokeless Tobacco: Never Tobacco Cessation:Counseling Given: Yes Alcohol Use Standard Drinks/Week Comments Yes 2 (1 standard drink = 0.6 oz pure alcohol) wine and kary 2-3 times a week PHQ-2 Answer Date Recorded PHQ-2 TOTAL SCORE 0 02/03/2022 Social Connections Answer Date Recorded Frequency of Communication with Friends and Fami ly Not on file 12/06/2022 Financial Resource Strain Answer Date R ecorded Difficulty of Paying Living Expenses 3 11/26/2021 Difficulty of Paying Living Expenses Not on file 11/26/2021 Food Insecurity Answer Date Recorded Worried About Running Out of Food in the Last Ye ar 1 11/26/2021 Transportation Needs Answer Date Record ed Lack of Transportation (Medical) 1 11/26/2021 Housing Stability Answer Date Recorded Unable to Pay for Housing in the Last Year 1 11/26/2021 Sex and Gender Information Value Date Recorded Sex Assigned at Not on file Gender Identity Not on file Sexual Orientation Not on file Obstetrics History Last Filed Vital Signs Vital Sign Reading Time Taken Comments Blood Pressure 94/68 04/01/2023 8:42 AM RADIO ENGINEERING TEACHER Pulse 84 04/01/2023 8:42 AM RADIO ENGINEERING TEACHER Temperature 37.1 ??C (98.8 ??F) 11/19/2021 8:00 AM CD T Respiratory Rate 16 11/19/2021 8:00 AM CDT Oxygen Saturation 96% 04/01/2023 8:42 AM RADIO ENGINEERING TEACHER Inhaled Oxygen Concentration - - Weight 92.1 kg (203 lb) 04/01/2023 8:42 AM RADIO ENGINEERING TEACHER Height 172.7 cm (5' 8) 04/01/2023 8:42 AM RADIO ENGINEERING TEACHER Body Mass Index 30.87 04/01/2023 8:42 AM RADIO ENGINEERING TEACHER Plan of Treatment Upcoming Encounters Date Type Department Care Team (Late st Contact Info) Description 08/19/2023 9:30 AM CDT Orders Only [facility] [address] [place] [address] Zeferino, Michael 08/23/2023 11:10 AM CDT Office Visit [facility] [address] [facility] [place] [address] Kely Cho PA [address] [facility] [address] 08/26/2023 10:00 AM CDT Office Visit [facility] [address] [place] [address] Osman Marie MD [address] [place] [address] 10/19/2023 10:30 AM CDT Cardiac Device Check [facility] [address] [place] [address] Health Maintenance Due Date Last Done Comments Tdap 07/15/1963 Tetanus booster 1972 Colonoscopy through age 75 1997 Zoster (shingles) series for age 50+ (2 of 3) 03/31/2016 02/04/2016 COVID-19 vaccine series ( season) 2022 03/20/2021, 07/12/2020, 06/21/2020 Depression screening for age 12+ 02/03/2023 02/03/2022, 02/03/2022, 08/15/2021, Additional history exists Medicare Wellness for age 65+ 02/04/2023 02/03/2022 Mammogram for age 45-75 02/23/2023 02/23/2022, 02/03 Influenza for age 65+ 11/07/2023 01/19/2022 , 01/07/2021, 01/25/2020, Additional history exists BMI (ht and wt on same day) for age 18+ 04/01/2024 04/01/2023, 06/10/2022, 03/12/2022, Additional history exists Lipids for age 45-75 08/15/2026 08/15/2021, 12/03/2015, 08/10/2012 Hepatitis C screening for ag e 18-79 Completed 02/03/2022 Pneumococcal series for age 65+ Completed DEXA/DXA scan for age 65+ Completed 02/23/2022, Procedures Procedure Name Priority Date/Time Associated Diagnosis Comments XR MAMMO JERE BILAT SCREEN Routine 02/23/2022 4:31 PM RADIO ENGINEERING TEACHER Visit for screening mammogram XR DXA BONE DENSITY 2 SITES AXIAL Routine 02/23/2022 3:41 PM RADIO ENGINEERING TEACHER Menopause ANTI HCV Routine 02/03/2022 11:20 AM RADIO ENGINEERING TEACHER Need for hepatitis C screening test LIPID PANEL Routine 08/15/2021 7:44 AM CDT Acute systolic heart failure (HC) from Last 3 Months or Most Recently Relevant to Health Maintenance Results * XR MAMMO JERE BILAT SCREEN (02/23/2022 4:31 PM RADIO ENGINEERING TEACHER) Anatomical Region Laterality Modality BREASTS, Breast Left, Breast Right Bilateral Mammography Impressions 02/24/2022 3:24 PM RADIO ENGINEERING TEACHER ??There is no radiographic evidence for malignancy. ??Recommend annual mammograms. MAMMOGRAM ASSESSMENT: ??ACR 1 Negative PATIENTS: You will also receive a letter with your examination results in an easy to read format. ??If you have questions about your results, please contact your referring provider. Narrative 02/24/2022 3:24 PM RADIO ENGINEERING TEACHER For Patients: As a result of the Century Cures Act, medical imaging exams and procedure reports are released immediately into your electronic medical record. You may view this report before your referring provider. If you have questions, please contact your health care provider. XR MAMMO JERE BILAT SCREEN [[id number]] CLINICAL HISTORY: ??This is an asymptomatic 71 y.o. patient. INDICATION FOR EXAM: Mammogram Screening. TECHNIQUE: CC & MLO views were obtained. ??This study was evaluated with the assistance of Computer-Aided Detection. Breast Tomosynthesis was used in interpretation. COMPARISON FILM: Yes 02/04/16 [employer] ?? FINDINGS: ??The breasts are heterogeneously dense, which may obscure small masses. There are no dominant masses, suspicious micro calcifications or areas of architectural distortion. Kely CASTAÑEDA MAMMO * XR DXA BONE DENSITY 2 SITES AXIAL [[id number]] (02/23/2022 3:41 PM RADIO ENGINEERING TEACHER) Anatomical Region Laterality Modality Spine, HIPS, HIPL, HIPR Other Impressions 02/23/2022 4:45 PM RADIO ENGINEERING TEACHER Normal bone density. RECOMMENDATIONS: The National Osteoporosis Foundation recommends pharmacologic treatment for patients with T-scores of -2.5 or less, patients with prior history of fragility fractures, or patients with 10-year probability of greater than 3% at hips or greater than 20% of suffering major osteoporotic fractures. Recommend continued optimization of calcium and vitamin D intake through dietary means and/or supplementation and regular exercise. Repeat scan recommended in 3-5 years. Kely Cho PA-C [facility] 02/23/2022 Narrative 02/23/2022 4:45 PM RADIO ENGINEERING TEACHER For Patients: Results are automatically released to your [facility] ([facility]) account once available, in compliance with federal regulations. This means that you may see your results before your provider has had a chance to review them. Please allow 2-3 business days for your provider to comment on the results. XR DXA Bone Mineral Density (BMD) EXAM LOCATION: [address] [address] PATIENT NAME: Anne Villarreal DATE OF : 1950 EXAM DATE: 02/23/2022 REQUESTING PROVIDER: Kely Cho PA GENDER AT : female HEIGHT: 5' 7 (02/03/2022) WEIGHT: ??202 lb (02/03/2022) MENOPAUSAL STATUS: Postmenopausal RACE/ETHNICITY: White RISK FACTORS: White Race CURRENT MEDICATION FOR BONE LOSS: NONE INDICATION: Post-Menopause COMPARISON DATE(S): 2015 DXA scans are compared to prior studies for a patient only when the two (or more) studies were performed on the same scanner. It is not possible to compare data generated on one scanner to data from another because there are not standards in DXA equipment. This applies even if the two scanners are made by the same armhole baster hand. PROCEDURE: Dual-energy x-ray absorptiometry performed with routine technique. Reporting is completed in the form of a T-score. The T-score represents the standard deviation from peak bone mass based on young healthy adult. A Z-score is used for diagnosis in premenopausal women, and for men under the age of 50. FINDINGS: RESULT LUMBAR SPINE L1 - L4 BMD: 1.131 g/cm2 T-Score: - 0.5 Z-Score: + 0.3 Change from prior in 2016: ??Decrease 5.8%. RESULTS FEMUR Left femoral neck BMD: 0.933 g/cm2 T-Score: - 0.8 Z-Score: + 0.3 Change from prior in 2016: ??Decrease 8.5%. Right femoral neck BMD: 0.928 g/cm2 T-Score: - 0.8 Z-Score: + 0.3 Change from prior in 2016: ??Decrease 4.5%. Left hip BMD: 0.979 g/cm2 T-Score: - 0.2 Z-Score: + 0.6 Change from prior in 2016: ??Decrease 7.0%. Right hip BMD: 1.026 g/cm2 T-Score: + 0.1 Z-Score: + 0.9 Change from prior in 2016: ??Decrease 3.8%. WHO criteria: Normal: T-score at or above -1 SD Osteopenia: T-score between -1.1 and -2.4 SD Osteoporosis: T-score at or below -2.5 SD Kely CASTAÑEDA DEXA * ANTI HCV (02/03/2022 11:20 AM RADIO ENGINEERING TEACHER) [facility] HEPATITIS C ANTIBODY Non-React malgorzata Non-React malgorzata 02/05/2022 1:09 PM RADIO ENGINEERING TEACHER [facility] Comment:Antibodies to HCV no t detected; does not exclude the possibility of exposure to HCV. Blood BLOOD SPECIMEN / Unknown Venipuncture / Unknown 02/03/2022 11:20 AM RADIO ENGINEERING TEACHER 02/03/2022 11:21 AM RADIO ENGINEERING TEACHER Kely CASTAÑEDA [facility] [address] [place] [address], * LIPID PANEL (08/15/2021 7:44 AM CDT) [facility] CHOLESTEROL,TOTAL 123 100 - 199 mg/dL 08/15/2021 3:29 PM CDT [facility] [employer] [facility] TRIGLYCERIDES 82 <150 mg/dL 08/15/2021 3:29 PM CDT [facility] HDL CHOLESTEROL 43 >40 mg/dL 3:29 PM CDT [facility] NON-HDL CHOLESTEROL 80 <145 mg/dl 08/15/2021 3:29 PM CDT [facility] CHOL/HDL RATIO 2.86 <4.50 08/15/2021 3:29 PM CDT [facility] LDL CHOLESTEROL 64 <=130 mg/dL 08/15/2021 3:29 PM CDT [facility] VLDL CHOLESTEROL 16 <=30 mg/dL 08/15/2021 3:29 PM CDT [facility] PROVIDER ORDERED STATUS RANDOM 08/15/2021 3:29 PM CDT [facility] Blood BLOOD SPECIMEN / Unknown Venipuncture / Unknown 08/15/2021 7:44 AM CDT 08/15/2021 7:44 AM CDT Celia Almanzar MD CHEMISTRY [facility] [employer] [facility] [address] [place] [address], from Last 3 Months or Most Recently Relevant to Health Maintenance Advance Directives * Full Code (Latest Code Status on File) Date Activated Date Inactivated Comments 11/18/2021 3:12 PM 11/19/2021 11:51 AM Question Answer Comments Code Status Discussion: Reviewed Preferences * Full Code Date Activated Date Inactivated Comments 04/12/2021 3:03 PM 04/23/2021 5:25 PM Question Answer Comments Code Status Discussion: Reviewed Preferences * Full Code Date Activated Date Inactivated Comments 04/09/2021 9:37 PM 04/12/2021 2:26 PM Question Answer Comments Code Status Discussion: Reviewed Preferences Care Teams Application Support Analyst Relationship Specialty Start Date End Date Kely Cho PA [address] [place] [address] PCP - General Physician Nondestructive Tester 04/24/21 Osman Marie MD [address] [facility] [address] [place] [id number] Cardiovascular Disease 09/10/21 Nurses, Advanced Heart Failure [address] [address] Advanced Heart Failure/Transplant Card 09/10/21
[2023-07-11] MEDS: 0.9 % SODIUM CHLORIDE 500 ML 500 ML IV (21:29)
[2023-07-11 21:30] LABS: Basophils Absolute Auto 0.03 K/uL (0.00-0.30); Basophils Percent Auto 0.4 % (0.0-3.0); Hematocrit 45.7 % (33.0-51.0); Hemoglobin* 15.5 gm/dL (12.0-16.0); Immature Granulocytes Abs Auto 0.01 K/uL (0.00-0.30); Immature Granulocytes Pct Auto 0.1 %; Lymphocytes Percent Auto 12.9 % (20-44); Mean Corpuscular HGB Conc 34 gm/dL (32-36); Mean Corpuscular Hemoglobin 32 pg (26-34); Mean Corpuscular Volume 95 fL (80-100); Monocytes Percent Auto 10.4 % (0.0-11.0); Neutrophils Percent Auto 76.2 % (42.0-72.0); Platelet Count* 177 K/uL (140-440); RDW Coefficient of Variation % 12.4 % (11.5-15.5); Red Blood Count 4.79 m/uL (4.00-5.20); White Blood Count* 7.34 K/uL (4.50-11.00)
[2023-07-11 21:31] LABS: Slide Review Reflex No
[2023-07-11 21:44] LABS: Chloride* 110 mmol/L (96-114); Sodium* 138 mmol/L (135-149)
[2023-07-11 21:45] LABS: Potassium* 3.9 mmol/L (3.6-5.1)
[2023-07-11 21:47] LABS: Creatinine* 0.7 mg/dL (0.5-1.5); Est. Creatinine Clearance* 52.81; Estimated Glomerular Filt Rate 93 ml/min
[2023-07-11 21:48] LABS: Anion Gap 7 mEq/L (7-15); Blood Urea Nitrogen* 15 mg/dL (7-30); Calcium* 8.8 mg/dL (8.4-10.6); Carbon Dioxide* 21 mmol/L (20-32); Glucose* 182 mg/dL (60-115)
[2023-07-11] MEDS: AMIODARONE 50 MG/ML 150 MG IVP (21:58)
[2023-07-11 22:01] LABS: Magnesium* 2.2 mg/dL (1.5-2.6); Troponin I* 0.05 ng/mL (0.01-0.04)
[2023-07-11 22:01] LABS: Troponin, Point-of-Care* 0.06 ng/ml (0.01-0.04)
[2023-07-11] MEDS: AMIODARONE INFUSION 360 MG/200 ML PLAST..BAG 33 MG IV (22:26)
--- NOTE | 2023-07-11 23:27 | ED.NURSE ---
Patient had not had one run of VTach since amiodarone administration.
[2023-07-12] VITALS (17 sets, daily range): BP systolic 110–130; BP diastolic 67–87; PULSE 70–95; RESP 16–20; TEMP 36.8–36.9; O2SAT 75–98
[2023-07-12] MEDS: AMIODARONE INFUSION 360 MG/200 ML PLAST..BAG 16.5 MG IV (03:51)
== END 2023-07-12 09:06 | disposition short-term general hospital (02) ==
PROVIDERS: Emergency Provider Family Medicine; PCP Physician Assistant Medical
DX: I47.20 Ventricular tachycardia, unspecified (principal); T82.897A Other specified complication of cardiac prosthetic devices, implants and grafts, initial encounter
CPT/HCPCS: 36415; 80048; 83735; 84484; 85025; 93005; 94761; 96374; 99284; 99285; 99291; J0282; J7030